=== PATIENT | male | born 1950 | race Caucasian/White ===

== ENCOUNTER 2025-01-12 12:28 | Outpatient (CLI) | payer OTHER | END 2025-01-12 12:29 | disposition home or self-care (01) | LOC: CSHULT 12:28 | PROVIDERS: ATTEND Chiropractor | DX: I25.10 Atherosclerotic heart disease of native coronary artery without angina pectoris (principal); E11.9 Type 2 diabetes mellitus without complications; E03.9 Hypothyroidism, unspecified; I51.7 Cardiomegaly; R93.1 Abnormal findings on diagnostic imaging of heart and coronary circulation | CPT/HCPCS: 93306 ==